=== PATIENT | male | born 1950 | race Caucasian/White ===

== ENCOUNTER 2019-03-02 07:26 | Emergency (ER) | payer OTHER, BC, MEDICARE ==
[2019-03-02] MEDS ORDERED: Ondansetron 4 MG/2 ML SDV IVPUSH ONE ×2 (08:05→15:48)
[2019-03-02] MEDS ORDERED: methylPREDNISolone Sodium Succinate 125 MG/2 ML SDV IVPUSH ONE (08:05)
[2019-03-02] MEDS ORDERED: Sodium Chloride 0.9% 10 ML Syringe FLUSH PRN ×2 (08:06→11:13)
[2019-03-02] MEDS ORDERED: Sodium Chloride 0.9% 1,000 ML IV SCH (08:15)
--- NOTE | 2019-03-02 08:31 | EDM.PDOC ---
ED HPI GENERAL MEDICAL PROBLEM - General Chief Complaint: Gastrointestinal Problem Stated Complaint: [facility] Time Seen by Provider: 03/02/19 07:54 Source of Information: Reports: Patient, RN Notes Reviewed - History of Present Illness INITIAL COMMENTS - FREE TEXT/NARRATIVE: 68-year-old male woke up with vertigo yesterday morning. He feels okay if he is lying still not moving but any type of movement throughout the day yesterday did make him feel dizzy. He thought with good nights rest he be fine by today but this morning he still is having vertigo with any type of motion. He does feel okay if he lies still. He did have a more mild episode like this many years ago. Does have history of hypertension. No headache. He has had some nausea but no vomiting. Focal neurologic symptoms. No visual or speech difficulty. - Related Data Allergies Allergy/AdvReac Type Severity Reaction Status Date / Time something but doesnt remember Allergy Cannot Uncoded 03/02/19 12:50 Remember Home Meds: Home Meds Clopidogrel [Plavix] 75 mg PO DAILY 03/02/19 [History] Lisinopril [Zestril] 10 mg PO DAILY 03/02/19 [History] Omeprazole 20 mg PO DAILY 03/02/19 [History] hydroCHLOROthiazide [Hydrochlorothiazide] 25 mg PO DAILY 03/02/19 [History] Past Medical History HEENT History: Reports: Impaired Vision Other HEENT History: wears glasses Cardiovascular History: Reports: High Cholesterol, Hypertension - Past Surgical History Cardiovascular Surgical History: Reports: Coronary Artery Bypass, Coronary Artery Stent Social & Family History - Tobacco Use Smoking Status *Q: Former Smoker Used Tobacco, but Quit: Yes Month/Year Tobacco Last Used: quit 4 years ago - Caffeine Use Caffeine Use: Reports: Coffee - Recreational Drug Use Recreational Drug Use: No ED ROS GENERAL - Review of Systems Review Of Systems: See Below Constitutional: Denies: Fever, Chills, Diaphoresis HEENT: Reports: Vertigo. Denies: Ear Discharge, Ear Pain Respiratory: Denies: Shortness of Breath Cardiovascular: Denies: Chest Pain GI/Abdominal: Reports: Nausea. Denies: Abdominal Pain, Diarrhea, Vomiting Musculoskeletal: Denies: Neck Pain, Shoulder Pain, Arm Pain, Back Pain Skin: Denies: Rash Neurological: Reports: Dizziness, Headache (mild, gone), Difficulty Walking. Denies: Numbness, Tingling, Trouble Speaking, Weakness ED EXAM, DIZZINESS - Physical Exam Exam: See Below General Appearance: Alert, No Apparent Distress Eye Exam: Bilateral Eye: Nystagmus ( very mild with eye motion left and right), PERRL Ears: Normal External Exam, Normal Canal, Normal TMs Nose: Normal Inspection Throat/Mouth: Normal Inspection, Normal Oropharynx Head Exam: Atraumatic. No: Facial Swelling Vertigo: worsens with head to L, worsens with head to R Neck: Supple Respiratory/Chest: No Respiratory Distress, Lungs Clear, Normal Breath Sounds Cardiovascular: Regular Rate, Rhythm GI/Abdominal: Soft, Non-Tender Neurological: Alert, No Motor/Sensory Deficits Back Exam: No: CVA Tenderness (L), CVA Tenderness (R) Extremities: Normal Inspection, Normal Range of Motion Skin Exam: Warm, Dry, Normal Color, No Rash EKG INTERPRETATION EKG Date: 03/02/19 Rhythm: NSR [place]: Normal P-Wave: Present QRS: Other (Q waves inferior leads) ST-T: Other (There is about 1-[address] depression V2 to V4 and also T-wave inversions anterior leads) Course - Vital Signs Last Recorded V/S: Last Vital Signs Temp 97.4 F 03/02/19 07:34 Pulse 97 03/02/19 07:34 Resp 13 03/02/19 07:34 BP 152/128 H 03/02/19 07:34 Pulse Ox 100 03/02/19 07:34 - Orders/Labs/Meds Labs: Laboratory Tests 03/02/19 03/02/19 Range/Units 07:55 07:55 WBC 7.74 (4.23-9.07) K/mm3 RBC 5.15 (4.63-6.08) M/mm3 Hgb 16.7 (13.7-17.5) gm/dl Hct 48.6 (40.1-51.0) % MCV 94.4 H (79.0-92.2) fl MCH 32.4 H (25.7-32.2) pg MCHC 34.4 (32.2-35.5) g/dl RDW Std Deviation 47.1 H (35.1-43.9) fL Plt Count 331 (163-337) K/mm3 MPV 9.3 L (9.4-12.3) fl Neut % (Auto) 79.8 H (34.0-67.9) % Lymph % (Auto) 11.2 L (21.8-53.1) % [place] % (Auto) 8.4 (5.3-12.2) % Eos % (Auto) 0.3 L (0.8-7.0) Baso % (Auto) 0.0 L (0.1-1.2) % Neut # (Auto) 6.18 H (1.78-5.38) K/mm3 Lymph # (Auto) 0.87 L (1.32-3.57) K/mm3 [place] # (Auto) 0.65 (0.30-0.82) K/mm3 Eos # (Auto) 0.02 L (0.04-0.54) K/mm3 Baso # (Auto) 0.00 L (0.01-0.08) K/mm3 Manual Slide Review Not Reportable Sodium 138 (136-145) mEq/L Potassium 4.2 (3.5-5.1) mEq/L Chloride 99 (98-107) mEq/L Carbon Dioxide 23 (21-32) mEq/L Anion Gap 20.2 H (5-15) BUN 10 (7-18) mg/dL Creatinine 1.0 (0.7-1.3) mg/dL Est Cr Clr Drug Dosing 77.60 mL/min Estimated GFR (MDRD) > 60 (>60) mL/min BUN/Creatinine Ratio 10.0 L (14-18) Glucose 99 (80-115) mg/dL Calcium 10.1 (8.5-10.1) mg/dL Total Bilirubin 0.6 (0.2-1.0) mg/dL AST 30 (15-37) U/L ALT 23 (16-63) U/L Alkaline Phosphatase 47 (46-116) U/L Total Protein 7.9 (6.4-8.2) g/dl Albumin 3.9 (3.4-5.0) g/dl Globulin 4.0 gm/dL Albumin/Globulin Ratio 1.0 (1-2) Meds: Medications Discontinued Medications Generic Name Dose Route Start Last Admin Trade Name Freq PRN Reason Stop Dose Admin Acetaminophen 975 mg 03/02/19 14:12 Tylenol PO 03/02/19 14:13 ONETIME ONE Acetaminophen 975 mg 03/02/19 14:15 03/02/19 14:19 Tylenol PO 03/02/19 14:16 975 mg NOW ONE Administration Aspirin 162 mg 03/02/19 09:16 03/02/19 09:28 Aspirin PO 03/02/19 09:17 162 mg ONETIME ONE Administration Clopidogrel Bisulfate 75 mg 03/02/19 09:16 03/02/19 09:28 Plavix PO 03/02/19 09:17 75 mg ONETIME ONE Administration Diazepam 2 mg 03/02/19 08:06 03/02/19 08:28 Valium IVPUSH 03/02/19 08:07 2 mg ONETIME ONE Administration Gadobenate Dimeglumine 20 ml 03/02/19 11:13 03/02/19 11:24 Multihance IVPUSH 03/02/19 11:14 20 ml ONETIME ONE Administration Hydromorphone HCl 0.5 mg 03/02/19 15:56 03/02/19 16:01 Dilaudid IVPUSH 03/02/19 15:57 0.5 mg ONETIME ONE Administration Sodium Chloride 1,000 mls @ 999 mls/hr 03/02/19 08:15 03/02/19 08:28 Normal Saline IV 999 mls/hr ONETIME ANTHONY Administration Ondansetron HCl 4 mg/ Sodium 52 mls @ 100 mls/hr 03/02/19 15:43 Chloride IV 03/02/19 16:15 ONETIME ONE Methylprednisolone Sodium Succinate 125 mg 03/02/19 08:05 03/02/19 08:31 Solu-Medrol IVPUSH 03/02/19 08:06 125 mg ONETIME ONE Administration Ondansetron HCl 4 mg 03/02/19 08:05 03/02/19 08:28 Zofran IVPUSH 03/02/19 08:06 4 mg ONETIME ONE Administration Ondansetron HCl 4 mg 03/02/19 15:48 03/02/19 15:50 Zofran IVPUSH 03/02/19 15:49 4 mg ONETIME ONE Administration Ondansetron HCl Confirm 03/02/19 15:46 Zofran Administered 03/02/19 15:47 Dose 4 mg .ROUTE .STK-MED ONE Sodium Chloride 10 ml 03/02/19 08:06 03/02/19 08:31 Saline Flush FLUSH 10 ml ASDIRECTED PRN Administration Keep Vein Open Sodium Chloride 10 ml 03/02/19 11:13 03/02/19 11:24 Saline Flush FLUSH 10 ml ONETIME PRN Administration Keep Vein Open Sodium Chloride 20 ml 03/02/19 11:13 03/02/19 11:24 Normal Saline IV 03/02/19 11:14 20 ml ONETIME ONE Administration - Re-Assessments/Exams Free Text/Narrative Re-Assessment/Exam: 03/02/19 08:[address] has come back showing a low-density finding right cerebellar hemisphere most likely representing infarct. MRI recommended. They are able to get an MRI for him in about 90 minutes. Will check MRA of head and neck at the same time. 01:45. MRI of the head shows large cerebellar infarct, see radiology report for details. MRA of neck does show one area of about 50% narrowing of the right external carotid artery, I had no 60-70% narrowing distal right vertebral artery. Once again see radiology report for details. 03/02/19 15:35. Have made arrangements for transfer to [facility], Dr Jenni Yarbrough, Hospitalist accepting Phys., will transfer by ground ambulance. Departure - Departure Time of Disposition: 15:25 Disposition: DC/Tfer to Acute Hospital 02 Condition: Fair Clinical Impression: Cerebellar stroke - Discharge Information Referrals: PCP,Not In Area [Primary Care Provider] - Forms: ED Department Discharge
--- NOTE | 2019-03-02 08:46 | CT ---
Head CT Technique: Multiple axial sections were obtained through the brain. Intravenous contrast was not utilized. Comparison: No previous intracranial imaging is available. Findings: Low-density area is noted within the right cerebellar hemisphere measuring approximately 3.8 cm x 4.0 cm. This finding causes slight mass effect upon the fourth ventricle. Mild diminished density is noted within portions of the periventricular white matter most likely representing small vessel ischemic demyelination change. No other abnormal parenchymal densities are seen. No evidence of intracranial hemorrhage. No midline shift or other mass effect is seen. Bone window settings show no acute calvarial abnormality. Visualized mastoid sinuses are clear. Minimal area of mucosal thickening is seen within the left side of the sphenoid sinus which is believed to be incidental. No acute findings are seen within the visualized paranasal sinuses. Impression: 1. Low density finding within the right cerebellar hemisphere most likely representing infarct. Recommend MRI study which should include contrast images to confirm that this represents infarct and not other abnormality. 2. Diminished density within the periventricular white matter most likely representing small vessel ischemic demyelination change. This can also be confirmed with MRI. 3. No intracranial hemorrhage is seen. Diagnostic code #9
[2019-03-02] MEDS ORDERED: Clopidogrel 75 MG Tab PO ONE (09:16)
[2019-03-02] MEDS ORDERED: Aspirin 81 MG Tab.Chew PO ONE (09:16)
[2019-03-02] MEDS ORDERED: Sodium Chloride 0.9% 10 ML SDV IV ONE (11:13)
[2019-03-02] MEDS ORDERED: Gadobenate Dimeglumine 529 MG/ML 20 ML SDV IVPUSH ONE (11:13)
--- NOTE | 2019-03-02 12:11 | MR ---
MRI brain (without and with intravenous contrast) Technique: T1 sagittal; T2, T2 FLAIR, T1 and diffusion axial; T2 gradient echo coronal and T1-weighted coronal; post contrast axial, sagittal and coronal images were obtained. Findings: Diffusion abnormality is seen which is wedge-shaped within the right cerebellar hemisphere extending into the cerebellar vermis. This area shows increased signal on the long TR sequence and is felt compatible with an irreversible large cerebellar infarct. No other diffusion abnormalities are seen. Areas of increased signal seen within the periventricular and subcortical white matter which is compatible with small vessel ischemic demyelination change. No other abnormal signal is seen. No abnormal enhancement is seen within the brain parenchyma. Ventricles along with basal cisterns and sulci over the convexities are within normal limits for the patient's age. Impression: 1. Findings compatible with irreversible infarct within the right cerebellar hemisphere extending into the cerebellar vermis. This causes slight mass effect upon fourth ventricle. 2. Small vessel ischemic demyelination change also noted. 3. No other diffusion abnormalities are seen. No abnormal enhancement is noted. Diagnostic code #3
--- NOTE | 2019-03-02 12:11 | MR ---
MR angiogram of neck Technique: MR angiogram study was obtained of the neck following intravenous contrast. Multiple MIP images were obtained in multiple projections. Findings: Common carotid arteries are patent. Mild amount of plaque is noted within the right carotid bulb narrowing the origin of the external carotid artery by about 50%. Internal carotid artery appears patent. Minimal plaque and narrowing is noted at the origin of the left external carotid artery. Common carotid artery and internal carotid artery are patent. There is narrowing within the distal right vertebral artery by approximately 60-70%. Vertebral arteries are otherwise patent. Impression: 1. Approximately 60-70% focal narrowing within the distal right vertebral artery. 2. Narrowing of the origin of the right external carotid artery of approximately 50%. Minimal stenosis at the origin of the left external carotid artery. 3. No other findings of stenosis is seen. Diagnostic code #3
--- NOTE | 2019-03-02 12:11 | MR ---
MR angiogram of brain Technique: [id number] MR angiogram study was obtained centered to the [place] of [place] with multiple MIP images being obtained in multiple projections. Findings: Basilar artery is patent. Internal cerebral arteries are patent. Anterior and middle cerebral arteries are patent. Both posterior cerebral arteries appear patent. No focal stenosis is seen within the visualized intracranial arteries. No discrete aneurysm is appreciated. Impression: 1. No abnormality is seen on MR angiogram study of the brain. Diagnostic code #1
[2019-03-02] MEDS ORDERED: Acetaminophen 325 MG/10.15 ML ML PO ONE (14:12)
[2019-03-02] MEDS ORDERED: Acetaminophen 325 MG Tab PO ONE (14:15)
[2019-03-02] MEDS ORDERED: Ondansetron 4 MG in Sodium Chloride 0.9% 50 ML IV ONE (15:43)
[2019-03-02] MEDS ORDERED: Ondansetron 4 MG/2 ML SDV ONE (15:46)
[2019-03-02] MEDS ORDERED: HYDROmorphone 0.5 MG/0.5 ML Syringe IVPUSH ONE (15:56)
== END 2019-03-02 17:35 ==
LOC: JD.ED 07:26
DX: I63.9 Cerebral infarction, unspecified (principal); I10 Essential (primary) hypertension; E78.00 Pure hypercholesterolemia, unspecified; Z79.899 Other long term (current) drug therapy; Z79.02 Long term (current) use of antithrombotics/antiplatelets; Z87.891 Personal history of nicotine dependence
CPT/HCPCS: 36415; 70450; 70544; 70548; 70553; 80053; 85025; 93005; 96361; 96374; 96375; 96376; 99285; A9270; A9577; J1170; J2405; J2930; J3360; J7040; 93010; 99284